=== PATIENT | male | born 1980 ===

== ENCOUNTER 2020-03-18 11:14 | Emergency (ER) | payer BC, OTHER ==
[2020-03-18] MEDS ORDERED: Colchicine 0.6 MG Tab PO ONE (11:35)
--- NOTE | 2020-03-18 11:35 | EDM.PDOC ---
ED HPI GENERAL MEDICAL PROBLEM - General Chief Complaint: Lower Extremity Injury/Pain Stated Complaint: GOUT IN BOTH FEET Time Seen by Provider: 03/18/20 11:35 Source of Information: Reports: Patient, RN, RN Notes Reviewed History Limitations: Reports: No Limitations - History of Present Illness INITIAL COMMENTS - FREE TEXT/NARRATIVE: Pt presents to ER with c/o a gout flare up in both big toes, and right ankle. Pt had a gout flare up about 2 weeks ago and improved with Colchicine. Denies any other complaints. Hx of gout x3 years. Onset: Gradual Duration: Getting Worse, Recurring Location: Reports: Lower Extremity, Left, Lower Extremity, Right Quality: Reports: Ache Severity: Severe Improves with: Reports: None Worsens with: Reports: Other (wt bearing) Associated Symptoms: Reports: No Other Symptoms Bilateral Feet Pain Score (Numeric/FACES): 8 - Related Data Allergies Allergy/AdvReac Type Severity Reaction Status Date / Time No Known Allergies Allergy Verified 03/18/20 11:33 Home Meds: Home Meds Colchicine 0.6 mg PO ASDIRECTED 03/18/20 [History] Past Medical History Musculoskeletal History: Reports: Gout Social & Family History - Family History Family Medical History: Noncontributory - Living Situation & Occupation Occupation: Employed Review of Systems - Review of Systems Review Of Systems: Comprehensive ROS is negative, except as noted in HPI. ED EXAM, GENERAL - Physical Exam Exam: See Below Exam Limited By: No Limitations General Appearance: Alert, WD/WN, No Apparent Distress Head: Atraumatic, Normocephalic Neck: Normal Inspection Respiratory/Chest: No Respiratory Distress Cardiovascular: Normal Peripheral Pulses, Regular Rate, Rhythm Extremities: Normal Capillary Refill, Increased Warmth (B/L 1st MTPJs, Rt ankle) , Redness (B/L 1st toes and Rt ankle with tenerness) Neurological: Alert, Oriented, No Motor/Sensory Deficits Psychiatric: Normal Mood Skin Exam: Dry, Intact Course - Vital Signs Last Recorded V/S: Last Vital Signs Temp 99 F 03/18/20 11:20 Pulse 18 L 03/18/20 11:20 Resp 18 03/18/20 11:20 BP 123/88 03/18/20 11:20 Pulse Ox 99 03/18/20 11:20 - Orders/Labs/Meds Meds: Medications Discontinued Medications Generic Name Dose Route Start Last Admin Trade Name Freq PRN Reason Stop Dose Admin Colchicine 1.2 mg 03/18/20 11:35 03/18/20 11:43 Colcrys PO 03/18/20 11:36 1.2 mg ONETIME ONE Administration Methylprednisolone Sodium Succinate 125 mg 03/18/20 11:36 03/18/20 11:43 Solu-Medrol IM 03/18/20 11:37 125 mg ONETIME ONE Administration Departure - Departure Time of Disposition: 11:44 Disposition: Home, Self-Care 01 Condition: Good Clinical Impression: Acute gout involving toe Qualifiers: Gout etiology: unspecified cause Laterality: unspecified laterality Qualified Code(s): M10.9 - Gout, unspecified Acute gout of right ankle Qualifiers: Gout etiology: unspecified cause Qualified Code(s): M10.9 - Gout, unspecified - Discharge Information *PRESCRIPTION DRUG MONITORING PROGRAM REVIEWED*: Not Applicable *COPY OF PRESCRIPTION DRUG MONITORING REPORT IN PATIENT ZARI: Not Applicable Instructions: Low-Purine Eating Plan Forms: ED Department Discharge Additional Instructions: Rx: Prednisone 20mg Rx: Colbenemid Hot pack/Hot soaks to feet/ankles. Follow up in clinic in 1 week for recheck. Sepsis Event Note - Evaluation Sepsis Screening Result: No Definite Risk - Focused Exam Vital Signs: Vital Signs Temp Pulse Resp BP Pulse Ox 03/18/20 11:20 99 F 18 L 18 123/88 99 Date Exam was Performed: 03/18/20 Time Exam was Performed: 11:47
[2020-03-18] MEDS ORDERED: methylPREDNISolone Sodium Succinate 125 MG/2 ML SDV IM ONE (11:36)
== END 2020-03-18 12:00 | disposition home or self-care (01) ==
LOC: DL.ED 11:14
DX: M10.9 Gout, unspecified (principal)
CPT/HCPCS: 96372; 99283; A9270; J2930; 99282